=== PATIENT | female | born 1940 | race Caucasian/White ===

== ENCOUNTER → 2017-12-31 11:17 | Outpatient (CLI) | payer MEDICARE, BC | END | disposition home or self-care (01) | LOC: D.CT 12-13 14:00 | DX: C85.93 Non-Hodgkin lymphoma, unspecified, intra-abdominal lymph nodes (principal) ==

== ENCOUNTER → 2018-10-27 14:33 | Outpatient (CLI) | payer MEDICARE, BC | END | disposition home or self-care (01) | LOC: D.CT 14:33 | PROVIDERS: ATTEND Nurse Practitioner Family | DX: R59.0 Localized enlarged lymph nodes (principal) ==

== ENCOUNTER → 2019-01-10 11:43 | Outpatient (CLI) | payer MEDICARE, BC | END | disposition home or self-care (01) | LOC: D.CT 11:43 | PROVIDERS: ATTEND Internal Medicine Hematology & Oncology | DX: C83.88 Other non-follicular lymphoma, lymph nodes of multiple sites (principal) ==

== ENCOUNTER → 2019-01-26 10:12 | Outpatient (CLI) | payer MEDICARE, BC ==
--- NOTE | 2019-01-27 12:01 | EC ---
PATIENT:SARAH VIDES DATE OF SERVICE: 01/26/19 SEX: F MEDICAL RECORD: [id number] DATE OF : 38 LOCATION:[facility] AGE OF PATIENT: 78 ADMISSION DATE: 01/26/19 REFERRING PHYSICIAN: INTERPRETING PHYSICIAN: KATH ZAMBRANO MD ECHOCARDIOGRAM REPORT ECHO CHARGES 4 ECHO COMPLETE Date: 01/26/19 CLINICAL DIAGNOSIS: SVT/ABNORMAL EKG H/O HTN ECHOCARDIOGRAPHIC MEASUREMENTS (adult normal given) AC root (d.<3.7cm) 2.8 cm LV Septum d (<1.2 cm> 1.3 cm Valve Excursion 1.2 cm LV Septum (systole) 1.9 cm Left Atria (s.<4.0cm> 3.9 cm LVPW d(<1.2cm) 1.3 cm RV (d.<2.3cm) 1.9 cm LVPW (sytole) 1.9 cm LV diastole(<5.6CM) 5.5 cm MV E-F(>70mm/sec) cm LV systole 2.9 cm LVOT Diameter 1.9 cm MV exc.(>10mm) cm Est.ejection fraction (50-75%) % DOPPLER: LVIT cm/sec A 93.0 cm/sec E 74.0 cm/sec LA cm/sec RVSP 23.0 mmHg LVOT 94.0 cm/sec AOP1/2T m/s Asc. Ao 214 cm/sec RVOT 72.0 cm/sec RA cm/sec PA 104 cm/sec AV Gradient Peak 18.3 mmHg AV Mean 9.5 mmHg AV Area 1.2 cm MV Gradient Peak 4.8 mmHg MV Mean 1.8 mmHg MV Area cm COMMENTS: OP - HC Laundry Routeman: 1 SAM GORAN Torch Straightener: 3 Dr. Li TAPE# PACS Pericardial Effusion N DATE OF SERVICE: Adequate 2D, color-flow and spectral Doppler, and M-mode. Mild LVH. LV internal dimensions are normal. Wall motion is normal. EF is greater than or equal to 55%. Aortic valve is tricuspid. No evidence of stenosis by Doppler interrogation. Left atrium is normal at 3.9 cm. Mitral valve shows no prolapse. Trivia MR. Right-sided chambers are grossly normal. Trivia TR. ECHOCARDIOGRAM REPORT [id number] SARAH VIDES TRANSINT:[id number] Voice Confirmation ID: [id number] DOCUMENT ID: [id number] KATH ZAMBRANO MD at 1201 CC: [id number] DICTATION DATE: 01/26/19 161 MEDICAL RECORDS TECH: 01/26/191931 DEP CLI 01/26/19 [place] [id number] [place] [id number]
== END | disposition home or self-care (01) ==
LOC: D.HCCECHO 10:12
PROVIDERS: ATTEND Internal Medicine Interventional Cardiology
DX: I10 Essential (primary) hypertension (principal)